=== PATIENT | female | born 1980 | race Caucasian/White ===

== ENCOUNTER → 2023-06-22 07:31 | Outpatient (REF) | payer OTHER, SELFPAY | LOC: WDC 07:31 | PROVIDERS: ATTENDING PHYSICIAN Obstetrics & Gynecology Gynecology; FAMILY PHYSICIAN Family Medicine | DX: Z12.31 Encounter for screening mammogram for malignant neoplasm of breast (principal) | CPT/HCPCS: 77063; 77067 ==

== ENCOUNTER → 2023-06-26 09:13 | Outpatient (REF) | payer OTHER, SELFPAY | LOC: WDC 09:13 | PROVIDERS: ATTENDING PHYSICIAN Obstetrics & Gynecology Gynecology; FAMILY PHYSICIAN Family Medicine | DX: R92.8 Other abnormal and inconclusive findings on diagnostic imaging of breast (principal) | CPT/HCPCS: 76642 ==

== ENCOUNTER → 2024-06-27 08:13 | Outpatient (REF) | payer OTHER, SELFPAY | LOC: WDC 08:13 | PROVIDERS: ATTENDING PHYSICIAN Obstetrics & Gynecology Gynecology | DX: Z12.31 Encounter for screening mammogram for malignant neoplasm of breast (principal); Z80.3 Family history of malignant neoplasm of breast | CPT/HCPCS: 77063; 77067 ==